=== PATIENT | male | born 1950 | race Caucasian/White ===

== ENCOUNTER → 2016-10-15 | Outpatient (CLI) | payer OTHER ==
[~2016-10-15] MED LIST: NS 100 ML IV 100 ML IV ONE
[2016-10-15 08:52] LABS: CREATININE 0.83 mg/dL (0.70-1.30)
--- NOTE | 2016-10-15 10:37 | CT ---
HISTORY: Follow up pulmonary nodule Study: CT chest with con Comparison: CT abdomen pelvis March 26, 2016 Technique: Axial post-contrast images with coronal and sagittal reformats. Dose reduction procedures were used with MA/kv adjusted for body size. Findings: Examination of the mediastinum demonstrated a 1.5 x 1.6 centimeter right thyroid nodule which should be further evaluated sonographically. No mediastinal masses, enlarged mediastinal adenopathy, or en larged hilar adenopathy is identified. No pleural effusions are identified. There is reflux of contr ast into the hepatic veins which can be seen in both right and left heart failure. No chest wall or axillary abnormality is identified. Best visualized on series 5, image 45 is a 4.2 millimeter right mid lung pulmonary nodule not significantly changed from the prior examination. No new nodules are i dentified. No alveolar infiltrates, areas of consolidation, masses, peribronchial thickening, or bro nchiectasis is identified. IMPRESSION: Stable 4 millimeter right mid lung pulmonary nodule for which follow up examination in 6 more months is recommended. 1.5 x 1.6 centimeter right thyroid nodule which should be further evaluated sonographically. Reported By:
--- NOTE | 2016-10-15 10:47 | CT ---
HISTORY: Diverticulosis. Study: CT abdomen and pelvis with contrast Comparison: CT abdomen/pelvis dated March 26, 2016. Technique: Multiple axial images of the abdomen and pelvis were obtained from the lung bases to the pubic symph ysis after the administration of IV contrast. Dose reduction techniques including Automated Exposur e Control (AEC) and adjustment of mA and kV were utilized. Findings: The visualized portions of the lung bases are unremarkable. 2.5 cm right superior renal pole simple cyst appears unchanged. Otherwise, the liver, spleen, pancreas, kidneys, and adrenal glands are unr emarkable in their CT appearance. The gallbladder is unremarkable in its CT appearance. No signific ant mesenteric lymphadenopathy or stranding can be observed. No free fluid or free air is seen with in the abdomen. Colonic diverticulum without evidence to suggest diverticulitis. The large and smal l bowel otherwise appear normal. The appendix is normal. The prostate gland appears normal The urina ry bladder is grossly unremarkable. Degenerative changes of the spine. No aggressive osseous lesion s. IMPRESSION: 1. No CT evidence of acute abdominal/pelvic pathology. 2. Other chronic findings as above. Reported By:
== END | disposition home or self-care (01) | DRG 379 ==
LOC: RAD 08:29
PROVIDERS: ATTEND Internal Medicine
DX: K57.31 Diverticulosis of large intestine without perforation or abscess with bleeding (principal); R91.1 Solitary pulmonary nodule; E04.1 Nontoxic single thyroid nodule; N28.1 Cyst of kidney, acquired
CPT/HCPCS: 36415; 71260; 74177; 82565; 84520; A4222

== ENCOUNTER → 2016-10-29 | Outpatient (CLI) | payer OTHER ==
--- NOTE | 2016-10-29 12:18 | US ---
HISTORY: Thyroid nodule Study: Thyroid sonogram Comparison: Chest CT October 15, 2016 Technique: Multiple grayscale sonographic images were obtained. Findings: The right lobe measured 4.9 x 1.9 x 2.3 centimeters, the isthmus 4.5 millimeters, and the left lobe 4.6 x 1.2 x 1.4 centimeters. Multiple bilateral thyroid nodules are present consistent with a multin odular goiter. Most of the nodules do not meet the criteria for fine needle aspiration. However in t he right lobe of the thyroid there is a complex partially cystic partially solid 1.56 x 1.17 x 1.36 centimeter nodule for which fine needle aspiration of the solid component is recommended. These find ings are most consistent with a multinodular goiter. IMPRESSION: Findings most consistent with a multinodular goiter but with a dominant right thyroid mass measuring 1.5 x 1.17 by 1.36 centimeter for which fine needle aspiration of the its solid components is recom mended. Reported By:
== END ==
LOC: RAD 10:16
PROVIDERS: ATTEND Internal Medicine
DX: E04.1 Nontoxic single thyroid nodule (principal)
CPT/HCPCS: 76536